=== PATIENT | female | born 1965 | race Caucasian/White ===

== ENCOUNTER 2017-01-25 11:16 | Observation (INO) | payer MEDICARE, BC, MEDICAID ==
[~2017-01-25 11:16] MED LIST: ADVIL200 M3 PO; ASMANEX0 IH; ASPIR-LOW81 MG; ASPIRIN LOW STR81 MG; ASPIRIN PO; ASPIRIN325 M3 PO; ASPIRIN325 MG; ASPIRIN325 MG PO; ASPIRIN81 M1 CH; BACTROBAN15 G1 TOP; BETA BLOCKER; CALCITRIOL0.25 MC1 PO; CALCITRIOL0.25 MCG PO; CALCIUM + D T1 UDTAB; CALCIUM 600 +1 EAC5 PO; COLACE100 MG PO; COREG12.5 MG; COREG3.125 M1 PO; DAY T PO; DESOGESTREL PO; DILAUDID4 MG; DURAGESIC TD; DURAGESIC1 EAC3 TOP; EPOGEN2000 U/ML; ETHINYL ESTRADIOL PO; FLAGYL500 MG PO; FOSRENOL; FOSRENOL1000 M1 CH; FOSRENOL1000 MG; FOSRENOL1000 MG PO; FOSRENOL500 MG PO; GLUCAGON EMERGEN1 MG IM; GLUCOSAMINE; HUMALOG KW200 UNIT/1 SC; HUMALOG100 U/ML; HUMALOG100 U/ML SQ; HUMALOG100 UNITS/ SC; HYDROMORPHONE PO; KARIVA PO; KEFLEX500 MG; KEFLEX500 MG PO; LANTUS SOL100 UNIT/1 SC; LANTUS100 U/ML; LANTUS100 U/ML SC; LANTUS100 UNITS/ SC; LEVAQUIN500 MG PO; LEVAQUIN750 MG PO; LEVOTHROID50 MCG PO; LIDOCAINE TOP; LIPITOR10 M1 PO; LIPITOR10 MG; LIPITOR10 MG PO; LIPITOR40 MG PO; LISINOPRIL10 MG; LORTAB 5/5001 EA PO; MIRALAX17 G2 PO; MIRALAX17 GM PO; MORPHINE IR15 MG/TAB PO; NEURONTIN300 M1 PO; NEURONTIN300 MG; NEURONTIN300 MG PO; NEXIUM40 MG PO; NOVOLOG100 U/M; PHENERGAN25 MG; PHOSLO667 M; PHOSLO667 M PO; PHOSLO667 MG; PLAVIX75 M1 PO; PLAVIX75 MG PO; PREDNISONE10 MG PO; PREDNISONE20 M1 PO; PROTONIX40 MG; SENSIPAR30 MG PO; SENSIPAR60 M1 PO; SENSIPAR60 MG; SENSIPAR60 MG PO; SYNTHROID50 MC1 PO; SYNTHROID50 MCG PO; SYNTHROID75 MC1 PO; TYLENOL500 MG PO; VALIUM10 MG; VENOFER100 MG/5 M; VIT D PO; VITAMIN D1000 UNI1 PO; VITAMIN D1000 UNI2 PO; ZEBETA5 MG; ZEMPLAR2 MCG; ZEMPLAR5 MCG/ML; [UNRECOGNIZED DRUG - CODE] PO; [UNRECOGNIZED DRUG - OTHER] PO; [UNRECOGNIZED DRUG - OTHER] PO
[2017-01-25] MEDS ORDERED: TYLENOL EXTRA500 M1 PO (11:49)
[2017-01-25] MEDS ORDERED: CALCITRIOL0.25 MC1 PO (11:49)
[2017-01-25] MEDS ORDERED: VITAMIN D250000 UNI1 PO (11:50)
[2017-01-25] MEDS ORDERED: DILAUDID2 M1 PO (11:51)
[2017-01-25] MEDS ORDERED: PLAQUENIL200 M1 PO ×2 (11:52→12:02)
[2017-01-25] MEDS ORDERED: LANTUS100 UNITS/ SC (11:52)
[2017-01-25] MEDS ORDERED: LISINOPRIL2.5 M1 PO (11:53)
[2017-01-25] MEDS ORDERED: LIDOPATCH1 EAC1 TOP (11:53)
[2017-01-25] MEDS ORDERED: METOPROLOL TART25 M1 PO (11:54)
[2017-01-25] MEDS ORDERED: [UNRECOGNIZED DRUG - OTHER] PO (12:01)
[2017-01-25] MEDS ORDERED: COUMADIN1 M1 PO (12:04)
[2017-01-25] MEDS ORDERED: ZOFRAN ODT4 MG PO (12:06)
[2017-01-25] MEDS ORDERED: MULTIVITAMINS1 EAC7 PO (12:06)
[2017-01-25] MEDS ORDERED: SENOKOT8.6 M1 PO (12:07)
[2017-01-25] MEDS ORDERED: MIDODRINE HCL5 M1 PO (12:08)
[2017-01-25 12:38] LABS: BASO ABSOLUTE COUNT 0.1 tho/cmm (0.0-0.2); EOS % 2.5 % (0-7); EOSINOPHIL ABSOLUTE COUNT 0.2 tho/cmm (0.0-0.7); HCT-HEMATOCRIT 28.3 % (34.0-49.0); HGB-HEMOGLOBIN 9.1 gm/dl (12.0-15.5); IMMATURE GRANULOCYTES ABSOLUTE 0.02 tho/cmm (0-0.03); IMMATURE GRANULOCYTES PERCENT 0.2 % (0-0.3); LYMPH % 22.7 % (20-45); LYMPH ABSOLUTE COUNT 2.1 tho/cmm (0.8-4.5); MCH (MEAN CORPUSCULAR HGB) 30.2 pg (28.0-32.0); MCHC MEAN CORPUSCULAR HGB CONC 32.2 % (32.0-36.0); MEAN PLATELET VOLUME 9.3 cmc (9.4-12.4); MONO % 9.9 % (0-12); MONOCYTE ABSOLUTE COUNT 0.9 tho/cmm (0.0-1.2); NEUTROPHIL ABSOLUTE COUNT 5.8 tho/cmm (1.6-8.0); NEUTROPHIL-AUTOMATED 5.8 tho/cmm (1.6-8.0); NEUTROPHILS % 63.7 % (40-80); PLATELET COUNT 588 tho/cmm (150-450); RED BLOOD COUNT 3.01 mil/cmm (4.00-5.20); RED CELL DISTRIBUTION WIDTH 17.8 % (12.4-16.4); WHITE BLOOD COUNT 9.1 tho/cmm (4.0-10.0)
[2017-01-25 12:43] LABS: INR 1.2 INR (0.9-1.1); PROTHROMBIN TIME 13.9 SECONDS (9.0-13.6)
[2017-01-25 12:57] LABS: ALB/GLOB RATIO 0.4 (0.8-2.0); ALBUMIN 2.2 g/dl (3.5-5.0); ALKALINE PHOSPHATASE 194 U/L (33-138); ALT/SGPT 21 U/L (12-78); ANION GAP 13 mmol/L (0-20); AST/SGOT 24 U/L (10-40); BILIRUBIN,TOTAL 0.3 mg/dl (0-1.5); BLOOD UREA NITROGEN 28 mg/dl (6-24); CALCIUM 7.9 mg/dl (8.5-10.5); CARBON DIOXIDE-VENOUS 31 mmol/L (22-32); CHLORIDE 99 mmol/l (96-110); CREATININE 5.11 mg/dl (0.50-1.10); POTASSIUM 3.1 mmol/L (3.7-5.1); SODIUM 140 mmol/L (135-145); eGFR VALUE FOR BLACK 11 mL/Min
[2017-01-25 13:02] LABS: TSH-THYROID STIMULATING HORM. 7.48 uIU/ml (0.40-3.80)
[2017-01-25 13:07] LABS: GLUCOSE 63 mg/dL (70-110)
[2017-01-25] MEDS ORDERED: [UNRECOGNIZED DRUG - REMARK] (13:29)
[2017-01-26 06:17] LABS: INR 1.2 INR (0.9-1.1); PROTHROMBIN TIME 14.5 SECONDS (9.0-13.6)
[2017-01-26 06:35] LABS: ALBUMIN 1.9 g/dl (3.5-5.0); ANION GAP 13 mmol/L (0-20); BLOOD UREA NITROGEN 33 mg/dl (6-24); CALCIUM 7.8 mg/dl (8.5-10.5); CARBON DIOXIDE-VENOUS 29 mmol/L (22-32); CHLORIDE 100 mmol/l (96-110); POTASSIUM 3.3 mmol/L (3.7-5.1); SODIUM 139 mmol/L (135-145)
[2017-01-26 06:41] LABS: ALB/GLOB RATIO 0.3 (0.8-2.0); ALKALINE PHOSPHATASE 160 U/L (33-138); ALT/SGPT 19 U/L (12-78); AST/SGOT 22 U/L (10-40); BILIRUBIN,TOTAL 0.3 mg/dl (0-1.5); CREATININE 6.08 mg/dl (0.50-1.10); PHOSPHOROUS 4.9 mg/dl (2.5-4.9); eGFR VALUE FOR BLACK 9 mL/Min
[2017-01-26 06:44] LABS: GLUCOSE 50 mg/dL (70-110)
[2017-01-27 05:53] LABS: IRON 47 ug/dl (37-170); IRON BINDING CAPACITY 207 ug/dl (250-450)
== END 2017-01-27 16:00 ==
LOC: U 11:16 → PCUB 11:20
PROVIDERS: Internal Medicine Nephrology; Nurse Practitioner Acute Care; ADMIT Internal Medicine
DX: I12.0 Hypertensive chronic kidney disease with stage 5 chronic kidney disease or end stage renal disease (principal); E10.22 Type 1 diabetes mellitus with diabetic chronic kidney disease; N18.6 End stage renal disease; R07.9 Chest pain, unspecified; R91.1 Solitary pulmonary nodule; D63.1 Anemia in chronic kidney disease; R79.89 Other specified abnormal findings of blood chemistry; E78.5 Hyperlipidemia, unspecified; E86.1 Hypovolemia; J44.9 Chronic obstructive pulmonary disease, unspecified; E10.42 Type 1 diabetes mellitus with diabetic polyneuropathy; I25.10 Atherosclerotic heart disease of native coronary artery without angina pectoris; F17.210 Nicotine dependence, cigarettes, uncomplicated; I34.2 Nonrheumatic mitral (valve) stenosis; I95.9 Hypotension, unspecified; Z79.01 Long term (current) use of anticoagulants; Z79.4 Long term (current) use of insulin; Z79.899 Other long term (current) drug therapy; Z88.1 Allergy status to other antibiotic agents; Z88.8 Allergy status to other drugs, medicaments and biological substances; Z91.048 Other nonmedicinal substance allergy status; Z82.49 Family history of ischemic heart disease and other diseases of the circulatory system; Z95.1 Presence of aortocoronary bypass graft; Z98.890 Other specified postprocedural states; Z99.2 Dependence on renal dialysis
CPT/HCPCS: G0257; G0378; G0379; J0885; J1815; Q4081